=== PATIENT | male | born 1990 | race Caucasian/White ===

== ENCOUNTER 2025-09-07 14:30 | Emergency (ER) | payer SELFPAY ==
--- NOTE | ~2025-09-07 | CT_ITS ---
CLINICAL HISTORY: LLQ pain cami after spltting legs on iceskates Exam: Contrast-enhanced CT abdomen and pelvis with multiplanar reformats. Comparison: None. Findings: CT abdomen: Lung bases are clear. Liver is free of focal lesions and ductal dilatation. Gallbladder appears unremarkable. Spleen is unremarkable. Pancreas and adrenal glands appear unremarkable. Kidneys reveal a 15 mm right renal lower pole cyst (4; 303, 13 Hounsfield units). Kidneys otherwise unremarkable. No free intraperitoneal fluid or retroperitoneal masses or adenopathy. Abdominal aorta is normal caliber. Bowel loops reveal no abnormal wall thickening or distention. No significant diverticular disease. The appendix is not definitively delineated however there is no secondary CT evidence of appendicitis. CT pelvis: No pelvic masses, fluid or adenopathy. Prostate gland and seminal vesicles appear unremarkable. Urinary bladder is free of gross filling defects. There is soft tissue stranding anterior to the pubic symphysis with subcutaneous edema in this region. (4; 612, also seen on 8; 45-61). Findings are nonspecific although could be reactive, related to athletic pubalgia or ???sports hernia??? or perhaps other nonspecific contusion.. If further evaluation is clinically warranted, nonemergent MRI could be considered. Osseous structures reveal no fractures or traumatic malalignment. No destructive osseous lesions. Impression: 1. Soft tissue stranding overlying the pubic symphysis differential considerations as described above. 2. No other acute traumatic sequela to the abdomen or pelvis. This document has been electronically signed by: Edward Lombardo MD on 09/07/2025 18:02:28
[2025-09-07 14:32] VITALS: BP 160/83; PULSE 78; RESP 18; TEMP 36.6; O2SAT 99; BMI 20.4
--- NOTE | 2025-09-07 14:35 | ED_ITS ---
HPI - General Adult General Chief complaint: Urogenital-Male Stated complaint: Groin Pain, Testicular Pain Time Seen by Provider: 09/07/25 16:01 History of Present Illness ED Provider: Shey PHELPS narrative: The patient is an ordinarily healthy and athletic 35-year-old who was playing ice hockey last night when he fell in a manner so that his legs split wide apart. As he did so felt a tearing sensation in his lower abdomen in the left side and in his groin. This happened at around 16:00 yesterday. The patient was quite uncomfortable immediately afterwards and had some trouble walking. 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 This morning he went to an urgent care center and was referred to the emergency room. He has noticed bruising at the base of the shaft of his penis. He has a lot of pain in the left lower abdomen and in the left groin as well. He has been able to urinate. No vomiting. No fevers. No hematuria. Related Data Previous Rx's ?Medication ?Instructions ?Recorded acetaminophen 500 mg capsule 1,000 mg (2 x 500 mg) PO Q8H PRN 09/07/25 fever or pain #14 caps ibuprofen 400 mg tablet 400 mg PO Q6H PRN pain #14 t abs 09/07/25 Allergies Allergy/AdvReac Type Severity Reaction Status Date / Time No Known Allergies Allergy Verified 09/07/25 14:35 Review of Systems 2 Review of Systems: Yes all other systems are reviewed and are negative Physical Exam ED Vital Signs: Vital Signs - 24 hr 09/07/25 14:32 09/07/25 17:06 09/07/25 20:02 Temperature 98 F 98.1 F 97.5 F Pulse Rate 78 68 65 Respiratory Rate 18 18 20 Blood Pressure 160/83 H 121/70 113/68 Pulse Oximetry 99 98 98 Oxygen Delivery Method Room Air Room Air Room Air 09/07/25 20:35 Temperature 97.5 F Pulse Rate 65 Respiratory Rate 20 Blood Pressure 113/68 Pulse Oximetry 98 Oxygen Delivery Method Room Air BMI result Body Mass Index 20.4 Const Other: The patient is a slim and athletic looking 35-year-old who looks somewhat uncomfortable. HENMT Other: The face is symmetrical. ?Mucous membranes moist. Eyes General: appearance normal, both eyes and all related structures Neck Neck: Yes normal visual inspection and Yes full ROM Resp Effort & Inspection: normal respiratory effort Auscultation: clear to auscultation bilaterally Cardio Rate: regular rate Rhythm: regular rhythm Heart sounds: S1 normal heart sound present and S2 normal heart sound present GI Other: Left lower quadrant tenderness Other: There is some bruising evident at the base of the penis but there was no swelling of the penis or deformity of the penis. The scrotum itself seems entirely normal. There was no scrotal swelling. Scrotal contents are unremarkable. No testicular tenderness or swelling. No hernia apparent. Skin Other: There is some bruising to the skin at the base of the penis and of the base of the shaft of the penis itself. Skin is otherwise unremarkable. Neuro Other: The patient is awake and alert with a normal mental status. Cranial nerves are grossly intact. He has intact strength and sensation in his extremities except as he is limited by pain Extrem Other: The patient has a tenderness along the left proximal inner thigh. No soft tissue swelling or ecchymosis present. The patient seems to have a lot of pain when he uses the left leg at the hip. However his pain does not seem to late to the hip joint itself, the pain seems to be in the region of the left medial thigh. Course Course Course Narrative: RME: WD 68 year male presents to ED for left testicular pain and bruising since last night after playing hockey. Patient denies any blunt trauma but states he did a half was split and heard a pop in his left groin left testicular area. Labs ultrasound ordered Medications Administered Discontinued Medications Generic Name Dose Route Start Last Admin Trade Name Parul PRN Reason Stop Dose Admin Acetaminophen 1,000 mg in 100 mls @ 400 mls/hr 09/07/25 16:14 09/07/25 17:16 Ofirmev IV 09/07/25 16:28 Infused ONCE ONE Infusion Iohexol 100 ml 09/07/25 17:22 09/07/25 17:22 Iohexol 350 Mg/Ml 100 Ml Infus..Btl IV 09/07/25 17:23 85 ml ONCE ONE Administration Ketorolac Tromethamine 15 mg 09/07/25 16:14 09/07/25 17:02 Ketorolac Tromethamine 15 Mg/Ml Vial IVPUSH 09/07/25 16:15 15 mg ONCE ONE Administration Medical Decision Making Medical Decision Making MDM Narrative: The patient is a 35-year-old male who seems quite athletic who sustained an accidental split of his legs while ice-skating playing hockey yesterday afternoon. He seems to have a lot of pain in the region of the left groin and the left medial thigh. He has some ecchymotic skin changes just above the penis. He is able to urinate. No hematuria. No testicular pain. My overall impression is that this seems to be some kind of a muscle tear type injury. A CT scan of the abdomen and pelvis shows soft tissue stranding overlying the pubic symphysis, however no distinct discrete injury otherwise is apparent. The patient was treated with ketorolac and ibuprofen in the emergency room. He will be given crutches. He will be given a work note. He will be advised to rest and take it easy. Use ice to the area of injury. He should follow up with the Orthopedics or possibly physiatry for this sports injury in an athletic 35-year-old. He does not have a PCP. He is also encouraged to get a PCP. Lab Data 09/07/25 15:14 09/07/25 15:14 Labs: Lab Results 09/07/25 09/07/25 Range/Units 15:14 15:26 WBC 13.1 H (4.8-10.8) X10*3/uL RBC 4.39 L (4.60-5.80) X10*6/uL Hgb 14.2 (14.0-18.0) g/dl Hct 42.6 (42.0-52.0) % MCV 97.0 (80.0-98.0) fL MCH 32.3 (27.0-33.0) pg MCHC 33.3 (31.0-36.0) g/dl RDW 11.9 (11.0-16.0) % Plt Count 203 (160-400) X10*3/uL MPV 9.2 L (9.4-12.4) fL Immature Gran % (Auto) 0.3 (0.0-0.4) % Neut % (Auto) 63.7 (45-73) % Lymph % (Auto) 24.5 (20-40) % Guthrie % (Auto) 9.8 (2-11) % Eos % (Auto) 1.4 (0-4) % Baso % (Auto) 0.3 (0-2) % Lymph # (Auto) 3.2 (1.2-4.9) X10*3/uL Guthrie # (Auto) 1.3 H (0.1-1.2) X10*3/uL Eos # (Auto) 0.2 (0.0-0.4) X10*3/uL Baso # (Auto) 0.0 (0.0-0.2) X10*3/uL Abs Immat Gran (auto) 0.04 H (0.00-0.03) X10*3/uL Absolute Neuts (auto) 8.3 (2.0-8.3) x10*3/uL Absolute Nucleated RBC 0.000 (0.0-0.012) X10*3/uL Nucleated RBC % (auto) 0.0 (0.0-0.2) /100WBC Sodium 145 (135-145) mmol/L Potassium 4.2 (3.3-5.1) mmol/L Chloride 110 H (96-108) mmol/L Carbon Dioxide 28 (22-29) mmol/L Anion Gap 11 L (12-20) BUN 16 (9-16) mg/dL Creatinine 1.05 (0.5-1.4) mg/dL Estim Creat Clear Calc 80.3 Estimated GFR > 60 Random Glucose 74 (60-115) mg/dL Calcium 9.8 (8.4-10.2) mg/dL Total Bilirubin 0.3 (0.0-1.0) mg/dL AST 28 (5-37) U/L ALT 18 (0-40) U/L Alkaline Phosphatase 70 (39-117) U/L Total Protein 7.0 (6.5-8.0) g/dL Albumin 4.8 (3.5-5.0) g/dL Urine Color Yellow Urine Appearance Clear Urine pH 5.5 (5.0-9.0) Ur Specific [place] >= 1.030 H (1.005-1.025) Urine Protein Trace (Neg-Trace) mg/dL Urine Glucose (UA) Negative (Negative) mg/dL Urine Ketones Trace (Negative) mg/dL Urine Blood Negative (Negative) Urine Nitrite Negative (Negative) Ur Leukocyte Esterase Negative (Negative) Ur N gonorrhoeae DNA (PCR) NOT DETECTED (Not Detect.) Ur Chlamydia DNA (PCR) NOT DETECTED (Not Detect.) Discharge Plan Discharge Clinical Impression: Strain of left groin, Fall from ice-skates Patient Disposition: Home, Self-Care Instructions: Muscle Strain (ED) Additional Instructions: I think you have a significant muscle tear type injury to your left groin. The CAT scan did not show any acutely dangerous or surgical issues. This will probably take at least several days to heal. You has been provided with a work note for this week. Please plan on resting and taking it easy as much as possible. Use the crutches to help get around. I have sent prescriptions for ibuprofen and acetaminophen to the [facility] on [facility] in [place]. Use these medications as needed for discomfort. Please contact the orthopedic office tomorrow morning and explained that you had a sports-related in while playing ice hockey and that you have a significant groin strain. My hope is that the orthopedic office will see you for this injury. However it may be that the orthopedic office will recommend that you see the physiatry office instead. You have that contact information also. Also please work on getting a primary care doctor. The contact information for some primary care offices has been provided. Return to the emergency room if you feel significantly worse. Prescriptions: New ibuprofen 400 mg tablet 400 mg PO Q6H PRN (Reason: pain) Qty: 14 0RF acetaminophen 500 mg capsule 1,000 mg PO Q8H PRN (Reason: fever or pain) Qty: 14 0RF Referrals: [facility] Physiatry [Provider Group, Physiatry] [facility] Primary Care, Andrea [Provider Group, Internal Medicine] [facility] Primary Care, Saman [Provider Group, Internal Medicine] [facility] Primary Care, [facility] [Provider Group, Primary Care] [facility] Orthopedic Surgeons [Provider Group] Stand Alone Forms: Work/School Release Interventions: ED Discharge Assessment Last Done: 09/07/25 20:35 Discharge Date/Time: 09/07/25 20:38 Print Language: Kiswahili
[2025-09-07 15:30] LABS: MANUAL DIFF FLAG NO
[2025-09-07 15:34] LABS: Hematocrit 42.6 % (42.0-52.0); Hemoglobin 14.2 g/dl (14.0-18.0); Imm Gran Abs Auto 0.04 X10*3/uL (0.00-0.03); Imm Gran Pct Auto 0.3 % (0.0-0.4); Lymphocytes Absolute Auto 3.2 X10*3/uL (1.2-4.9); Mean Corpuscular HGB Conc 33.3 g/dl (31.0-36.0); Mean Corpuscular Hemoglobin 32.3 pg (27.0-33.0); Mean Corpuscular Volume 97.0 fL (80.0-98.0); NRBC Abs Auto 0.000 X10*3/uL (0.0-0.012); NRBC Pct Auto 0.0 /100WBC (0.0-0.2); Platelet Count 203 X10*3/uL (160-400); Red Blood Count 4.39 X10*6/uL (4.60-5.80); White Blood Count 13.1 X10*3/uL (4.8-10.8)
[2025-09-07 15:39] LABS: Appearance Urine Clear; Glucose Urine UA Negative (Negative); PH 5.5 (5.0-9.0); Specific Gravity - Urine >= 1.030 (1.005-1.025)
[2025-09-07 15:47] LABS: Alanine Aminotransferase 18 U/L (0-40); Albumin Level 4.8 g/dL (3.5-5.0); Alkaline Phosphatase 70 U/L (39-117); Anion Gap 11 (12-20); Aspartate Amino Transferase 28 U/L (5-37); Blood Urea Nitrogen 16 mg/dL (9-16); Calcium 9.8 mg/dL (8.4-10.2); Carbon Dioxide 28 mmol/L (22-29); Chloride 110 mmol/L (96-108); Creatinine Clr Calc Pharmacy 80.3; Estimated Glomerular Filt Rate > 60; Potassium 4.2 mmol/L (3.3-5.1); Sodium 145 mmol/L (135-145); Total Protein 7.0 g/dL (6.5-8.0)
[2025-09-07 17:06] VITALS: BP 121/70; PULSE 68; RESP 18; TEMP 36.7; O2SAT 98
[2025-09-07] MEDS: iohexoL 350 MG/ML 100 ML INFUS..BTL IV (17:22)
--- OUTSIDE RECORDS SUMMARY | 2025-09-07 18:43 | XMS_ITS | Data Portability ---
Author Organization [facility] , [id number] Address [address] [place] [address] Assessment No assessment recorded. Plan of Treatment Reminders Order Date Submit Date Provider Last Modified By Organization Details Last Modified Time Details Appointments None record ed. Lab None record ed. Referral None record ed. Procedures None record ed. Surgeries None record ed. Imaging None record ed. Medication Orders None record ed. Patient TargetsNo targets recorded. Patient InstructionsNo instructions recorded. Reason for Referral None Reported. Procedures Surgical History Date Name Laterality Status Provider Name and Address Organization Details Recorded Time [facility] Send Out Template NON DOT completed Coral OLIVIER - [facility] 07/18/2024 12:30:49 Imaging Results None recorded. Procedure Notes None recorded. Medical Equipment None Reported. Vitals None Recorded Social History None recorded. Functional Status None recorded. Mental Status None recorded. Family History Nothing Reported. Medical History No medical history recorded. Past Encounters Encounter ID Performer Location Encounter Start Date Encounter Closed Date Diagnosis/Indication Diagnosis SNOMED-CT Code Diagnosis ICD10 Code Diagnosis IMO Codes Diagnosis Note [id number] [facility] [id number] [address] [place] [address] 07/18/2024 12:12:03 07/18/2024 12:37:36 History and physical examination, occupation 877749118 Z02.1 Health Concerns Section Related Observation LastModified by Organization Detai ls LastModified Time None Recorded Concern Status LastModified by Organization Details LastModified Time None Recorded Advance Directives Directive None Recorded Payers Insurance Date Sequence Insurance Name Policy Number Policy Wayne Covered Member ID Wayne Member ID Guarantor Name 07/18/2024 [employer] Iván Gregorio
[2025-09-07 20:02] VITALS: BP 113/68; PULSE 65; RESP 20; TEMP 36.4; O2SAT 98
--- NOTE | 2025-09-07 20:02 | PC.NURSE ---
assumed care of pt, pt to be fitted for crutches, confirms comfortable with this plan. respirations even and unlabored, reports pain relief with medication.
[2025-09-07 20:35] VITALS: BP 113/68; PULSE 65; RESP 20; TEMP 36.4; O2SAT 98
[2025-09-07 23:04] LABS: CT PCR Urine NOT DETECTED (Not Detect.); NG PCR Urine NOT DETECTED (Not Detect.)
== END 2025-09-07 20:38 | disposition home or self-care (01) ==
PROVIDERS: Physician Assistant; Emergency Provider Emergency Medicine
DX: S39.013A Strain of muscle, fascia and tendon of pelvis, initial encounter (principal); R10.32 Left lower quadrant pain; N50.812 Left testicular pain; X50.1XXA Overexertion from prolonged static or awkward postures, initial encounter; X50.9XXA Other and unspecified overexertion or strenuous movements or postures, initial encounter; Y93.21 Activity, ice skating; Y92.89 Other specified places as the place of occurrence of the external cause; Y99.8 Other external cause status; Z79.899 Other long term (current) drug therapy
CPT/HCPCS: 36415; 74177; 80053; 81003; 85025; 87491; 87591; 96374; 96375; 99284; 99285; J0131; J1885; Q9967

== ENCOUNTER → 2025-09-07 16:11 | Outpatient (BNV) | payer SELFPAY | PROVIDERS: Emergency Provider Emergency Medicine; Visit Provider Radiology Diagnostic Radiology | DX: M79.9 Soft tissue disorder, unspecified (principal) | CPT/HCPCS: 74177 ==